=== PATIENT | male | born 1980 | race Caucasian/White ===

== ENCOUNTER 2023-08-12 12:00 | Outpatient (RCR) | payer OTHER, SELFPAY ==
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
== END 2023-11-29 08:39 | disposition home or self-care (01) ==
PROVIDERS: PCP Internal Medicine; Visit Provider Internal Medicine
DX: M25.512 Pain in left shoulder (principal); M54.2 Cervicalgia; Z51.89 Encounter for other specified aftercare
CPT/HCPCS: 97110; 97140; 97161

== ENCOUNTER 2023-10-21 08:27 | Outpatient (CLI) | payer OTHER, SELFPAY ==
--- NOTE | 2023-10-21 08:15 | CRLHL7_ITS ---
For Patients: As a result of the Century Cures Act, medical imaging exams and procedure reports are released immediately into your electronic medical record. You may view this report before your referring provider. If you have questions, please contact your health care provider. INDICATION: Mid back pain. COMPARISON: None. TECHNIQUE: Sagittal T1, T2, and STIR sequences. Axial T2/gradient sequences. FINDINGS: Normal vertebral body facet alignment. No fractures. No vertebral body loss of height. No spondylolisthesis. No ligamentous injury. No suspicious osseous lesions. Vertebral body hemangioma T9. Normal cord signal. No intradural mass or lesion. Mild thoracic spondylosis. Multilevel disc degeneration. T5-6: Disc degeneration. No spinal canal neural foraminal narrowing. T6-7: Small left paracentral disc protrusion or disc osteophyte complex with no spinal canal or neural foraminal narrowing. T7-8: Disc generation. Shallow left paracentral disc protrusion. Otherwise, no spinal canal or neural foraminal narrowing. T8-9: Disc degeneration and posterior disc bulge. No spinal canal or neural foraminal narrowing. T9-10: Disc generation posted disc bulge. No spinal canal or neural foraminal narrowing. T10-11: Disc degeneration with a small left paracentral disc protrusion or disc osteophyte complex. Otherwise, no spinal canal or neural foraminal narrowing. No spinal canal or neural foraminal narrowing at the remaining levels. IMPRESSION: 1. Normal alignment. No fractures. 2. Normal cord signal. 3. Mild thoracic spondylosis. 4. No spinal canal or neural foraminal narrowing at all levels. Dictated by Jesse Claire MD @ 10/21/2023 2:46:42 PM (Electronically Signed)
== END 2023-10-21 08:28 | disposition home or self-care (01) ==
LOC: MRI 08:28
PROVIDERS: PCP Internal Medicine; Visit Provider Internal Medicine
DX: M54.6 Pain in thoracic spine (principal); M47.894 Other spondylosis, thoracic region
CPT/HCPCS: 72146